=== PATIENT | female | born 1960 | race Caucasian/White ===

== ENCOUNTER → 2022-05-28 19:50 | Outpatient (BNVA) | payer OTHER, SELFPAY | PROVIDERS: Family Provider Internal Medicine; Visit Provider Nurse Practitioner Family | DX: N94.9 Unspecified condition associated with female genital organs and menstrual cycle (principal) | CPT/HCPCS: 86695; 86696 ==

== ENCOUNTER 2022-08-01 06:05 | Day surgery (SDC) | payer OTHER, SELFPAY ==
[2022-07-28 10:17] VITALS: BMI 23.3
[2022-08-01 06:25] VITALS: BP 150/93; PULSE 87; RESP 18; TEMP 36.4; O2SAT 96
[2022-08-01] MEDS: sodium chloride 0.9% 1,000 ML 30 ML IV (06:31)
--- NOTE | 2022-08-01 06:53 | ANES.PREANE2 ---
Pre-Anesthetic Assessment Height/Weight: Height 1.65 m Weight 63.503 kg Temp Pulse Resp BP Pulse Ox O2 Del Method 97.5 F L 87 18 150/93 96 08/01/22 06:25 08/01/22 06:25 08/01/22 06:25 08/01/22 06:25 08/01/22 06:25 08/01/22 06:25 Preop Diagnosis: screening Operation Date: 08/01/22 07:30 Proposed Procedures p Colonoscopy 00856,Z12.11(Not Applicable) - Justin Ggae DO Familial anesthetic complications: none Was Beta Jena taken within 24 hours: N/A Was Clonidine taken within 24 hours: N/A Last intake: Intake Last Liquid Date 07/31/22 Last Liquid Time 20:00 Last Solid Date 07/30/22 Last Solid Time 21:30 Last Intake: 20:00 Social Tobacco and No alcohol 1/2 pack(s) per day 40+ pack years Exam alert, oriented x 3, clear to auscultation bilaterally and regular rate & rhythm Airway Submandibular: within normal limits Cervical ROM: within normal limits Mallampati: Class II Pulmonary None reported CV/HEM None reported None reported Hepatic None reported GI None reported Metabolic None reported Musc/skel None reported Neuropsych None reported Anesthetic Plan ASA status: 1 Anesthesia: MAC Risk of > 500 ml blood loss (7ml/kg in children): No Medications/Allergies Home Medications Medication Instructions Recorded Confirmed Last Taken Type No Known Home Medications 07/28/22 07/28/22 Unknown History Allergies Allergy/AdvReac Type Severity Reaction Status Date / Time No Known Allergies Allergy Unverified 07/28/22 10:15 Current Medications Generic Name Dose Route Start Last Admin Trade Name Freq PRN Reason Stop Dose Admin Sodium Chloride 1,000 mls @ 30 mls/hr 08/01/22 06:30 08/01/22 06:31 Sodium Chloride 0.9% IV 30 mls/hr .Q24H JIA Administration PFSH Anesthesia Social History Smoking and tobacco status: current every day smoker Data Anesthesia Cardiac Studies: No Data to Display
--- NOTE | 2022-08-01 07:23 | PM.HP ---
Providers/Chief Complaint Primary Care Provider: Marilee Romano MD Chief Complaint: encounter for screening for malignant History of Present Illness Maggie Ventura is a 61 year old female here for her first screening colonoscopy. She denies any problems with her bowels Medications/Allergies Home Medications Medication Instructions Recorded Confirmed Last Taken Type No Known Home Medications 07/28/22 07/28/22 Unknown History Allergies Allergy/AdvReac Type Severity Reaction Status Date / Time No Known Allergies Allergy Unverified 07/28/22 10:15 PFSH Acute PFSH: Social History Smoking and tobacco status: current every day smoker Vitals/I&O/Wt Last Vital Signs Temp 97.5 F L 08/01/22 06:25 Pulse 87 08/01/22 06:25 Resp 18 08/01/22 06:25 BP 150/93 08/01/22 06:25 Pulse Ox 96 08/01/22 06:25 O2 Del Method 08/01/22 06:25 A&P Assessment and plan (1) Colon cancer screening: Plan Colonoscopy The risks and benefits of the procedure, including bleeding, infection, intestinal perforation requiring surgery, missed lesion, or explained to the patient. He is understanding of the risks and wishes to proceed. Attestations Medical Necessity Statement*: Home Coding Level of Care Code Acute Operational Review Sergeant for Chg Fwd Diagnoses Colon cancer screening Z12.11
[2022-08-01 07:43] VITALS: BP 129/74; PULSE 76; RESP 16; TEMP 36.6; O2SAT 97
[2022-08-01 07:53] VITALS: BP 116/66; PULSE 69; RESP 16; O2SAT 98
[2022-08-01 08:02] VITALS: BP 128/75; PULSE 83; RESP 16; O2SAT 94
--- NOTE | 2022-08-01 14:56 | ANE.PACU2 ---
Inpatient post-anesthesia follow up: Airway intact: Yes Vital signs: Temperature 98 F Pulse Rate 83 Respiratory Rate 16 Blood Pressure 128/75 Pulse Oximetry 94 Oxygen Delivery Me thod Room Air Oxygen Flow Rate Fraction of Inspir ed Oxygen Hydration adequate: Yes Nausea and vomiting: No Pain level: 1 Mental status: Baseline
== END 2022-08-01 08:14 | disposition home or self-care (01) ==
PROVIDERS: PCP Family Medicine; Visit Provider Surgery
PROC: 0DJD8ZZ Inspection of Lower Intestinal Tract, Via Natural or Artificial Opening Endoscopic (ICD-10-PCS; CPT 45378; principal; 2022-08-01 07:30)
DX: Z12.11 Encounter for screening for malignant neoplasm of colon (principal); D12.4 Benign neoplasm of descending colon; K57.30 Diverticulosis of large intestine without perforation or abscess without bleeding; F17.210 Nicotine dependence, cigarettes, uncomplicated
CPT/HCPCS: 45380; 88305; J2704; J7030

== ENCOUNTER 2022-12-27 12:45 | Outpatient (CLI) | payer OTHER, SELFPAY ==
--- NOTE | 2022-12-27 12:55 | MM_ITS ---
WS: [id number] BILATERAL 3D TOMOSYNTHESIS DIGITAL SCREENING MAMMOGRAPHY WITH CAD CLINICAL INFORMATION: SCREENING HISTORY: Screening mammogram. No current complaints. COMPARISON: 2014 TECHNIQUE: Bilateral CC and MLO views. FINDINGS: Scattered fibroglandular densities bilaterally. No suspicious focal mass, asymmetry, calcifications, or architectural distortion. No evidence of malignancy. MM/[place] [id number] IMPRESSION: BI-RADS: 1-Negative FOLLOW UP: 1 Year Follow-up Recommend return to annual screening mammography.
== END 2022-12-27 12:46 | disposition home or self-care (01) ==
PROVIDERS: PCP Family Medicine; Visit Provider Family Medicine
DX: Z12.31 Encounter for screening mammogram for malignant neoplasm of breast (principal)
CPT/HCPCS: 77063; 77067

== ENCOUNTER 2024-04-24 13:00 | Outpatient (CLI) | payer MEDICARE, SELFPAY ==
--- NOTE | 2024-04-24 13:07 | MM_ITS ---
WS: [id number] BILATERAL 3D TOMOSYNTHESIS DIGITAL SCREENING MAMMOGRAPHY WITH CAD CLINICAL INFORMATION: SCREENING HISTORY: Screening mammogram. No current complaints. COMPARISON: 2022 TECHNIQUE: Bilateral CC and MLO views. FINDINGS: Scattered fibroglandular densities bilaterally. No suspicious focal mass, asymmetry, calcifications, or architectural distortion. No evidence of malignancy. A few incidental punctate calcifications. Vas cular calcification. MM/[place] [id number] IMPRESSION: BI-RADS: 2-Benign FOLLOW UP: 1 Year Follow-up Recommend return to annual screening mammography.
--- NOTE | 2024-04-24 13:33 | XR_ITS ---
WS: [id number] SCREENING DEXA SCAN [facility] CLINICAL INFORMATION: ASYMPTOMATIC MENOPAUSAL STATE COMPARISON: None. FINDINGS: The L1-L4 bone mineral density measures 0.855 g/cm2. This corresponds to a T score score of -2.7 and Z score of -1.1. Left femoral neck bone mineral density measures 0.755 g/cm2. This corresponds to a T score of -2.0 an d Z score of -0.7. Right femoral neck bone mineral density measures 0.767 g/cm2. This corresponds to a T score -1.9of an d Z score of -0.6. Mean femoral neck bone mineral density measures 0.761 g/cm2. This corresponds to a T score of -2.0 an d Z score of -0.7. XR/XR DEXA axial skeleton* [id number] IMPRESSION: Osteoporosis lumbar spine. Osteopenia femoral necks. Patient's FRAX calculated 10 year probability for major osteoporotic fracture i s 16.0% and osteoporotic hip fracture is 6.1%.
== END 2024-04-24 13:00 | disposition home or self-care (01) ==
LOC: RAD 13:02
PROVIDERS: PCP Family Medicine; Visit Provider Family Medicine
DX: Z12.31 Encounter for screening mammogram for malignant neoplasm of breast (principal); Z78.0 Asymptomatic menopausal state; R92.323 Mammographic fibroglandular density, bilateral breasts; R92.1 Mammographic calcification found on diagnostic imaging of breast; M81.0 Age-related osteoporosis without current pathological fracture; M85.852 Other specified disorders of bone density and structure, left thigh; M85.851 Other specified disorders of bone density and structure, right thigh
CPT/HCPCS: 77063; 77067; 77080

== ENCOUNTER 2025-09-15 13:49 | Outpatient (CLI) | payer MEDICARE, SELFPAY ==
--- NOTE | 2025-09-15 13:57 | MM_ITS ---
WS: [id number] BILATERAL 3D TOMOSYNTHESIS DIGITAL SCREENING MAMMOGRAPHY WITH CAD CLINICAL INFORMATION: SCREENING HISTORY: Screening mammogram. No current complaints. COMPARISON: 2023 TECHNIQUE: Bilateral CC and MLO views. FINDINGS: Scattered fibroglandular densities bilaterally. No suspicious focal mass, asymmetry, calcifications, or architectural distortion. No evidence of malignancy. MM/MM scr BI tomosynthesis [id number] IMPRESSION: DENSITY: There are scattered areas of fibroglandular density. BI-RADS: 1 - Negative. FOLLOW UP: 1 Year Follow-up Recommend return to annual screening mammography.
--- NOTE | 2025-09-15 13:57 | US_ITS ---
WS: [id number] INDICATION: Lump on skull TECHNIQUE: Ultrasound soft tissue of concern FINDINGS: Ultrasound suboccipital region patient directed. Small amount of scalp edema in the area of patient concern. No underlying mass or abnormality. No suspicious findings. US/US soft tissue head neck [id number] IMPRESSION: See above
== END 2025-09-15 13:50 | disposition home or self-care (01) ==
LOC: RAD 13:50
PROVIDERS: PCP Family Medicine; Visit Provider Nurse Practitioner Family
DX: Z12.31 Encounter for screening mammogram for malignant neoplasm of breast (principal); M89.8X8 Other specified disorders of bone, other site; R92.323 Mammographic fibroglandular density, bilateral breasts; R60.9 Edema, unspecified
CPT/HCPCS: 76536; 77063; 77067